=== PATIENT | male | born 1985 | race Two or more races ===

== ENCOUNTER 2016-08-22 05:39 | Emergency (ER) | payer OTHER ==
[~2016-08-22] VITALS: Ht 188 cm; Wt 69.9 kg
[2016-08-22 05:55] VITALS: BP 118/76
[2016-08-22] MEDS ORDERED: IPRATRPIUM/ALBUTEROL 0.5/2.5MG 3 ML NEBU. NEB ONE (06:15)
[2016-08-22] MEDS ORDERED: PREDNISONE 10 MG TABLET PO ONE (06:15)
[2016-08-22] MEDS ORDERED: PRED50TA PO (07:01)
--- NOTE | 2016-08-22 07:01 | PHYS DOC ---
Past Medical History Past Medical History: Other Additional Past Medical Histor: sinus infection Past Surgical History: Other Additional Past Surgical Histo: sinus infection w surg. intervention Alcohol Use: None Drug Use: None Adult General Chief Complaint Chief Complaint: SHORTNESS OF BREATH HPI HPI 31-year-old male presenting to the emergency department today with shortness of breath and cough. This is been present for 3 days. He recently was treated for sinus infection. He reports it being worse at night. It is associated with a nonproductive cough. He denies fevers. Location lungs. Duration intermittent. Mildly alleviated by albuterol. Review of Systems Review of Systems ROS negative for chest pain abdominal pain nausea vomiting fevers chills. All other review of systems is negative unless otherwise noted in history of present illness. Current Medications Current Medications Current Medications Medications (Trade) Dose Ordered Sig/Vangie Start Time Stop Time Status Last Admin Dose Admin Albuterol/ Ipratropium (Duoneb) 3 ml 1X ONCE 08/22/16 06:15 08/22/16 06:22 DC 08/22/16 06:21 3 ML Prednisone (Prednisone) 50 mg 1X ONCE 08/22/16 06:15 08/22/16 06:22 DC 08/22/16 06:26 50 MG Allergies Allergies Allergies Coded Allergies Type Severity Reaction Last Updated Verified No Known Drug Allergies 08/22/16 No Physical Exam Physical Exam Constitutional: Well developed, well nourished, no acute distress, non-toxic appearance. [] HENT: Normocephalic, atraumatic, bilateral external ears normal, oropharynx moist, no oral exudates, nose normal. [] Eyes: PERRLA, EOMI, conjunctiva normal, no discharge. [] Neck: Normal range of motion, no tenderness, supple, no stridor. [] Cardiovascular:Heart rate regular rhythm, no murmur [] Lungs & Thorax: Patient has wheezing on inspiration and expiration with a prolonged expiratory phase. No crackles present. Abdomen: Bowel sounds normal, soft, no tenderness, no masses, no pulsatile masses. [] Skin: Warm, dry, no erythema, no rash. [] Back: No tenderness, no CVA tenderness. [] Extremities: No tenderness, no cyanosis, no clubbing, ROM intact, no edema. [] Neurologic: Alert and oriented X 3, normal motor function, normal sensory function, no focal deficits noted. [] Psychologic: Affect normal, judgement normal, mood normal. [] Current Patient Data Vital Signs Vital Signs Date Time Temp Pulse Resp B/P Pulse Ox O2 Delivery O2 Flow Rate FiO2 08/22/16 06:21 93 Room Air 08/22/16 05:55 97.7 86 22 97.7 EKG EKG [] Radiology/Procedures Radiology/Procedures [] Course & Med Decision Making Course & Med Decision Making Pertinent Labs and Imaging studies reviewed. (See chart for details) [] 31-year-old male presenting the emergency department with cough and shortness of breath. On evaluation the patient's vital signs were afebrile. Oxygen saturation a little below what I would expect. Blood pressure within normal limits. Respiratory rate mildly increased. On examination the patient's wheezing present. He was treated with prednisone and a DuoNeb therapy rate on reevaluation his wheezing improved his oxygen saturation improved significantly. He was subsequent discharged home with oral prednisone for the next 5 days with an albuterol to go home with. Follow up with Dr. Cam over the next 3-5 days. Dragon Disclaimer Dragon Disclaimer This electronic medical record was generated, in whole or in part, using a voice recognition dictation system. Departure Departure Impression: Primary Impression: Acute asthma exacerbation Disposition: 01 HOME, SELF-CARE Condition: STABLE Referrals: NO PCP (PCP) MICKEY CAM MD Patient Instructions: Asthma Attacks, Prevention, Asthma, Adult Additional Instructions: Thank you for allowing us to participate in your care today. Followup with your primary care physician in 3 days if your symptoms do not improve. If you do not have a primary care provider you can ask for a list of our primary care providers. Return to the emergency department you have any new or concerning findings. This should be evaluated by the primary care physician and any necessary consulting services for continued management within a few days after discharge. Return to emergency room if you have any new or concerning symptoms including but not limited to fever, chills, nausea, vomiting, intractable pain, any new rashes, chest pain, shortness of air, uncontrolled bleeding, difficulty breathing, and/or vision loss. You may have been prescribed medication that can change in your level of thinking and ability to operate machinery. These medications include hydrocodone and Ativan. Also, Benadryl has been known to do this as well. Be sure to check with your pharmacist and ask if the medications you've prescribed can affect your level of consciousness. I recommend not operating heavy machinery or driving while on medication such as these. Scripts Albuterol Sulfate (Proair Hfa Inhaler)8.5 Gm Hfa.aer.ad1 Puff INH PRN Q6HRS PRN SHORTNESS OF BREATH #1 INHALER Prov:DC CASTILLO MD 08/22/16 Prednisone 50 Mg [id number] Mg PO DAILY #4 TAB start on 08/23/16 at 0700. Prov:DC CASTILLO MD 08/22/16 DC CASTILLO MD Aug 22, 2016 07:01
[2016-08-22] MEDS ORDERED: PROAIR HFA8.5 GM INH (07:02)
== END 2016-08-22 07:09 | disposition home or self-care (01) ==
LOC: ER 05:39
DX: J45.901 Unspecified asthma with (acute) exacerbation (principal)
CPT/HCPCS: 94640; 99283; J7512; J7620; 99284

== ENCOUNTER 2016-09-12 00:15 | Emergency (ER) | payer OTHER ==
[~2016-09-12] VITALS: Ht 188 cm; Wt 69.9 kg
[~2016-09-12 00:15] MED LIST: PRED50TA PO; PROAIR HFA8.5 GM INH
[2016-09-12 00:22] VITALS: BP 112/71
[2016-09-12] MEDS ORDERED: PRED50TA PO (00:37)
--- NOTE | 2016-09-12 00:37 | PHYS DOC ---
Past Medical History Past Medical History: Other Additional Past Medical Histor: sinus infection Past Surgical History: Other Additional Past Surgical Histo: sinus infection w surg. intervention Alcohol Use: None Drug Use: None Adult General Chief Complaint Chief Complaint: Congestion HPI HPI Patient is a 31 year old male who presents with nasal congestion and drainage that is worse at night. States history of asthma and sinus problems. Denies fever, sore throat. Review of Systems Review of Systems Constitutional: Denies fever or chills Eyes: Denies change in visual acuity, redness, or eye pain HENT: Denies sore throat. nasal congestion for several weeks Respiratory: Denies cough or shortness of breath Cardiovascular: No additional information not addressed in HPI GI: Denies abdominal pain, nausea, vomiting, bloody stools or diarrhea : Denies dysuria or hematuria Musculoskeletal: Denies back pain or joint pain Integument: Denies rash or skin lesions Neurologic: Denies headache, focal weakness or sensory changes Endocrine: Denies polyuria or polydipsia Allergies Allergies Allergies Coded Allergies Type Severity Reaction Last Updated Verified No Known Drug Allergies 08/22/16 No Physical Exam Physical Exam Constitutional: Well developed, well nourished, no acute distress, non-toxic appearance. HENT: Normocephalic, atraumatic, bilateral external ears normal, oropharynx moist, no oral exudates. Nares erythematous and clear nasal drainage Eyes: PERRLA, EOMI, conjunctiva normal, no discharge. Neck: Normal range of motion, no tenderness, supple, no stridor. Cardiovascular:Heart rate regular rhythm, no murmur Lungs & Thorax: Bilateral breath sounds clear to auscultation Abdomen: Bowel sounds normal, soft, no tenderness, no masses, no pulsatile masses. Skin: Warm, dry, no erythema, no rash. Back: No tenderness, no CVA tenderness. Extremities: No tenderness, no cyanosis, no clubbing, ROM intact, no edema. Neurologic: Alert and oriented X 3, normal motor function, normal sensory function, no focal deficits noted. Psychologic: Affect normal, judgement normal, mood normal. Current Patient Data Vital Signs Vital Signs Date Time Temp Pulse Resp B/P Pulse Ox O2 Delivery O2 Flow Rate FiO2 09/12/16 00:22 98.0 89 20 95 Room Air 98.0 EKG EKG [] Radiology/Procedures Radiology/Procedures [] Impressions: 1. congestion 2. asthma Course & Med Decision Making Course & Med Decision Making Pertinent Labs and Imaging studies reviewed. (See chart for details) [] Dragon Disclaimer Dragon Disclaimer This electronic medical record was generated, in whole or in part, using a voice recognition dictation system. Departure Departure Impression: Primary Impression: Nasal congestion Disposition: HOME, SELF-CARE Condition: STABLE Referrals: NO PCP (PCP) Patient Instructions: Allergic Rhinitis, Azelastine; Fluticasone nasal spray Additional Instructions: may get over the counter Flonase to assist with nasal drainage. Keep your appointment for 09/17/16. Return if any problems or concerns. Scripts Prednisone 50 Mg Tablet1 Tab PO DAILY #5 TAB Prov:AQUILES FISHER APRN 09/12/16 AQUILES FISHER APRN Sep 12, 2016 00:37
== END 2016-09-12 00:39 | disposition home or self-care (01) ==
LOC: ER 00:15
DX: R09.81 Nasal congestion (principal); J45.909 Unspecified asthma, uncomplicated
CPT/HCPCS: 99283

== ENCOUNTER → 2016-10-20 | Outpatient (CLI) | payer OTHER ==
--- NOTE | 2016-10-20 15:35 | RAD ---
Indication: Chronic sinus pain and headaches. Prior surgery a few months ago. Technique: Noncontrast CT head was obtained. CT maxillofacial includes axial images and coronal and sagittal reformatted images. No comparison for either exam is available. One or more of the following individualized dose reduction techniques were utilized for this examination: 1. Automated exposure control 2. Adjustment of the mA and/or kV according to patient size 3. Use of iterative reconstruction technique Findings: Head: The ventricles and sulci are within normal limits for age. There is no acute intracranial hemorrhage or extra-axial fluid collection. There is no mass effect or midline shift. Falk-white differentiation is preserved. Mastoid air cells are clear. There is no depressed skull fracture. Maxillofacial: Left frontal sinus is opacified. Moderate mucosal thickening is noted in the right frontal sinus. There likely has been ethmoid bullectomy on the right, mild right ethmoid mucosal thickening. Left ethmoid air cells are opacified, anterior and mid. It is difficult to determine if surgery was performed in the left ethmoid air cells. There is mild left sphenoid sinus mucosal thickening and moderate right. Right sphenoethmoidal recess is occluded and the left narrowed. There are postsurgical changes of widening of the maxillary ostium and resection of the uncinate process. There is mild to moderate maxillary mucosal thickening bilaterally with both maxillary ostia patent. Middle turbinates were probably partially resected and medialized. There is slight nasal septal deviation to the left. There is no wall sclerosis. There is no maxillofacial fracture. Orbital contents are unremarkable. Impression: 1. No acute intracranial findings. 2. Pansinus mucosal thickening. Postsurgical changes with widening of the maxillary ostia bilaterally and right ethmoid bullectomy.
== END | disposition home or self-care (01) ==
LOC: MERGE 14:30 → CT 14:55
PROVIDERS: ATTEND Family Medicine
DX: J32.4 Chronic pansinusitis (principal); R51 Headache; J30.9 Allergic rhinitis, unspecified
CPT/HCPCS: 70450; 70486

== ENCOUNTER 2016-10-24 00:21 | Emergency (ER) | payer OTHER ==
[~2016-10-24] VITALS: Ht 188 cm; Wt 74.4 kg
[2016-10-24 00:25] VITALS: BP 122/81
[2016-10-24] MEDS ORDERED: PRED-220 PO (02:01)
--- NOTE | 2016-10-24 02:01 | PHYS DOC ---
Past Medical History Past Medical History: Other Additional Past Medical Histor: sinus infection Past Surgical History: Other Additional Past Surgical Histo: sinus infection w surg. intervention Alcohol Use: None Drug Use: None Adult General Chief Complaint Chief Complaint: Congestion HPI HPI Patient is a 31 year old male who presents the emergency room today with ongoing nasal congestion, pressure and pain for approximately one and a half to 2 weeks. Patient's had a history of recurring problems of the sinuses. He has had sinus surgery [facility] within the past 2 years. Patient saw his primary care doctor, Dr. cedeno and had a subsequent CT scan performed. He states he has not had follow-up yet with Dr. cedeno. Patient has not made contact with his ENT doctor at [facility] as of yet. Denies any fevers or chills. Patient states that when he takes steroids is typically helped to eliezer the swelling. Review of Systems Review of Systems Constitutional: Denies fever or chills [] Eyes: Denies change in visual acuity, redness, or eye pain [] HENT: Denies nasal congestion or sore throat [] Respiratory: Denies cough or shortness of breath [] Cardiovascular: No additional information not addressed in HPI [] GI: Denies abdominal pain, nausea, vomiting, bloody stools or diarrhea [] : Denies dysuria or hematuria [] Musculoskeletal: Denies back pain or joint pain [] Integument: Denies rash or skin lesions [] Neurologic: Denies headache, focal weakness or sensory changes [] Endocrine: Denies polyuria or polydipsia [] Allergies Allergies Allergies Coded Allergies Type Severity Reaction Last Updated Verified No Known Drug Allergies 08/22/16 No Physical Exam Physical Exam Constitutional: Well developed, well nourished, no acute distress, non-toxic appearance. [] HENT: Normocephalic, atraumatic, bilateral external ears normal, oropharynx moist, no oral exudates. Patient has an obvious nasal breather. There is was lying/turbulent airflow when he inhales and x-ray ulcers nose. Patient's nasal mucosa is palpable and boggy. He has tenderness to both the frontal and maxillary sinuses as well as complaint of pain between his eyes. There is no mucopurulent drainage produced. Posterior oropharynx is normal in appearance. Eyes: PERRLA, EOMI, conjunctiva normal, no discharge. [] Neck: Normal range of motion, no tenderness, supple, no stridor. [] Cardiovascular:Heart rate regular rhythm, no murmur [] Lungs & Thorax: Bilateral breath sounds clear to auscultation. Abdomen: Bowel sounds normal, soft, no tenderness, no masses, no pulsatile masses. [] Skin: Warm, dry, no erythema, no rash. [] Back: No tenderness, no CVA tenderness. [] Extremities: No tenderness, no cyanosis, no clubbing, ROM intact, no edema. [] Neurologic: Alert and oriented X 3, normal motor function, normal sensory function, no focal deficits noted. [] Psychologic: Affect normal, judgement normal, mood normal. [] Current Patient Data Vital Signs Vital Signs Date Time Temp Pulse Resp B/P Pulse Ox O2 Delivery O2 Flow Rate FiO2 10/24/16 00:25 97.3 84 16 122/81 93 Room Air 97.3 EKG EKG [] Radiology/Procedures Radiology/Procedures Review patient's CT scan that was performed earlier this past week. There was widespread mucosal swelling and all of patient's sinuses without any fluid levels seen. There is also no documentation by the radiologist of only destruction. Course & Med Decision Making Course & Med Decision Making Pertinent Labs and Imaging studies reviewed. (See chart for details) [] Dragon Disclaimer Dragon Disclaimer This electronic medical record was generated, in whole or in part, using a voice recognition dictation system. Departure Departure Impression: Primary Impression: Pansinusitis Disposition: HOME, SELF-CARE Condition: GOOD Referrals: MIAN CEDENO MD (PCP) Patient Instructions: Sinusitis, [id number] Additional Instructions: 1. Take the medication as prescribed. 2. Review the discharge instructions for self-care and reasons to return to the emergency department. 3. Contact Dr. Cedeno's office for follow-up. You can also contact your ear nose and throat doctor at [facility] for follow-up as well. Scripts Prednisone 10 Mg [id number] Mg PO UD PREDNISONE TAPER #39 TAB Ref 0 Take 3 tablets by mouth twice a day for 3 days, then take 2 tablets by mouth twice a day for 3 days, then take 1 tablet by mouth twice a day for 3 days, then take 1 tablet by mouth daily x 3 days, then stop. Prov:AMANDA CARNES 10/24/16 AMANDA CARNES Oct 24, 2016 02:01
== END 2016-10-24 02:06 | disposition home or self-care (01) ==
LOC: ER 00:21
DX: J32.4 Chronic pansinusitis (principal)
CPT/HCPCS: 99283

== ENCOUNTER 2016-11-29 21:56 | Emergency (ER) | payer OTHER ==
[~2016-11-29] VITALS: Ht 188 cm; Wt 74.8 kg
[~2016-11-29 21:56] MED LIST changes: +PRED-220 PO
[2016-11-29] MEDS ORDERED: DEXAMETHASONE SOD PHOS 20 MG/5 ML VIAL. IM ONE (22:30)
[2016-11-29] MEDS ORDERED: IPRATRPIUM/ALBUTEROL 0.5/2.5MG 3 ML NEBU. NEB ONE (22:30)
[2016-11-29 23:35] VITALS: BP 119/78
--- NOTE | 2016-11-29 23:36 | PHYS DOC ---
Past Medical History Past Medical History: Other Additional Past Medical Histor: sinus infection Past Surgical History: Other Additional Past Surgical Histo: sinus infection w surg. intervention Alcohol Use: None Drug Use: None Adult General Chief Complaint Chief Complaint: COUGH HPI HPI Patient is a 31 year old male with history of chronic sinusitis who presents today complaining of chronic nasal congestion. Patient states he follows up with [facility], he states they did sinus surgery 2 years ago. He states he has continued to have sinus congestion and trouble breathing despite the surgery. He states he typically gets a steroids. He states when taking the steroids his symptoms are usually very mild. He states as soon as the steroids are completed his symptoms tend to recur, he states he took steroids last month. He states he called the primary care doctor at they ordered him azithromycin for 3 days ago. He states is still taking it. Patient is requesting steroid. Review of Systems Review of Systems Constitutional: Denies fever or chills [] Eyes: Denies change in visual acuity, redness, or eye pain [] HENT: Chronic nasal congestion. Respiratory: Denies cough or shortness of breath [] Cardiovascular: No additional information not addressed in HPI [] GI: Denies abdominal pain, nausea, vomiting, bloody stools or diarrhea [] : Denies dysuria or hematuria [] Musculoskeletal: Denies back pain or joint pain [] Integument: Denies rash or skin lesions [] Neurologic: Denies headache, focal weakness or sensory changes [] Endocrine: Denies polyuria or polydipsia [] Current Medications Current Medications Current Medications Medications (Trade) Dose Ordered Sig/Vangie Start Time Stop Time Status Last Admin Dose Admin Albuterol/ Ipratropium (Duoneb) 3 ml 1X ONCE 11/29/16 22:30 11/29/16 22:31 DC 11/29/16 22:45 3 ML Dexamethasone Sodium Phosphate (Decadron) 10 mg 1X ONCE 11/29/16 22:30 11/29/16 22:31 DC 11/29/16 22:39 10 MG Allergies Allergies Allergies Coded Allergies Type Severity Reaction Last Updated Verified No Known Drug Allergies 08/22/16 No Physical Exam Physical Exam Constitutional: Well developed, well nourished, no acute distress, non-toxic appearance. [] HENT: Normocephalic, atraumatic, bilateral external ears normal, oropharynx moist, no oral exudates, nose normal. [] Bilateral nasal turbinates are boggy and erythematous. Mild maxillary sinus tenderness on exam. Patient is a mouth breather due to chronic congestion. Eyes: PERRLA, EOMI, conjunctiva normal, no discharge. [] Neck: Normal range of motion, no tenderness, supple, no stridor. [] Cardiovascular:Heart rate regular rhythm, no murmur [] Lungs & Thorax: Bilateral breath sounds clear to auscultation [] Abdomen: Bowel sounds normal, soft, no tenderness, no masses, no pulsatile masses. [] Skin: Warm, dry, no erythema, no rash. [] Back: No tenderness, no CVA tenderness. [] Extremities: No tenderness, no cyanosis, no clubbing, ROM intact, no edema. [] Neurologic: Alert and oriented X 3, normal motor function, normal sensory function, no focal deficits noted. [] Psychologic: Affect normal, judgement normal, mood normal. [] Current Patient Data Vital Signs Vital Signs Date Time Temp Pulse Resp B/P Pulse Ox O2 Delivery O2 Flow Rate FiO2 11/29/16 22:43 92 Nasal Cannula 3.0 11/29/16 21:59 97.7 100 24 97.7 EKG EKG [] Radiology/Procedures Radiology/Procedures [] Course & Med Decision Making Course & Med Decision Making Pertinent Labs and Imaging studies reviewed. (See chart for details) Patient is in the ED with chronic sinus congestion. He typically gets steroids which alleviates his symptoms. He was given Decadron in the ED and discharged with Medrol Dosepak. He has an appointment with ENT at on December 11, 2016. He is currently on azithromycin which he received from his own PCP. His vitals are stable in the ED. 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 Dragon Disclaimer Dragon Disclaimer This electronic medical record was generated, in whole or in part, using a voice recognition dictation system. Departure Departure Impression: Primary Impression: Pansinusitis Disposition: HOME, SELF-CARE Condition: STABLE Referrals: MIAN BALES MD (PCP) Please call your primary care doctor as well as ENT and follow-up tomorrow Patient Instructions: Sinusitis Additional Instructions: You were seen for chronic sinus congestion. We highly recommend you call ENT and follow-up as soon as possible. Call your primary care doctor and schedule another follow-up appointment. Complete your azithromycin which you are currently on. We put you on steroids. Take as prescribed. Scripts Methylprednisolone (Medrol)4 Mg Tab.ds.pk1 Pkg PO UD #1 PKG Prov:ROD BRANNON APRN 11/29/16 Albuterol Sulfate (Proair Respiclick)90 Mcg Aer.pow.ba1 Puff IH PRN Q6HRS PRN SHORTNESS OF BREATH #1 INHALER Prov:ROD BRANNON APRN 11/29/16 Problem Qualifiers Primary Impression: Pansinusitis Chronicity: chronic Qualified Code: J32.4 - Chronic pansinusitis ROD BRANNON APRN Nov 29, 2016 23:36
[2016-11-29] MEDS ORDERED: METH4TAB2 PO (23:38)
[2016-11-29] MEDS ORDERED: PROAIR RESPICL90 MCG IH (23:38)
== END 2016-11-29 23:50 | disposition home or self-care (01) ==
LOC: ER 21:56
DX: J32.4 Chronic pansinusitis (principal); Z79.52 Long term (current) use of systemic steroids
CPT/HCPCS: 94640; 96372; 99283; J1100; J7620

== ENCOUNTER 2017-01-21 22:57 | Emergency (ER) | payer OTHER ==
[~2017-01-21] VITALS: Ht 188 cm; Wt 74.4 kg
[~2017-01-21 22:57] MED LIST changes: +METH4TAB2 PO; +PROAIR RESPICL90 MCG IH
[2017-01-21 23:08] VITALS: BP 153/77
--- NOTE | 2017-01-21 23:44 | PHYS DOC ---
Past Medical History Past Medical History: Other Additional Past Medical Histor: sinus infection Past Surgical History: Other Additional Past Surgical Histo: sinus infection w surg. intervention Alcohol Use: None Drug Use: None Adult General Chief Complaint Chief Complaint: COUGH HPI HPI Patient is a 31 year old male presents to the emergency department stating that he's been having shortness of air difficulty breathing within the last hour to 2 hours. He states that he did have some cough and congestion that started around midnight last night. Patient denies any fever, chills he does state that he's had some sinus infections in which he has been seeing ENT for the past. Patient denies any fever, any nausea or vomiting. Review of Systems Review of Systems Constitutional: Denies fever or chills [] Eyes: Denies change in visual acuity, redness, or eye pain [] HENT: Denies nasal congestion or sore throat [] Respiratory: cough and shortness of breath [] Cardiovascular: No additional information not addressed in HPI [] GI: Denies abdominal pain, nausea, vomiting, bloody stools or diarrhea [] : Denies dysuria or hematuria [] Musculoskeletal: Denies back pain or joint pain [] Integument: Denies rash or skin lesions [] Neurologic: Denies headache, focal weakness or sensory changes [] Endocrine: Denies polyuria or polydipsia [] Current Medications Current Medications Current Medications Medications (Trade) Dose Ordered Sig/Vangie Start Time Stop Time Status Last Admin Dose Admin Albuterol/ Ipratropium (Duoneb) 3 ml 1X ONCE 01/21/17 23:45 01/21/17 23:46 DC 01/21/17 23:48 3 ML Prednisone (Prednisone) 40 mg 1X ONCE 01/21/17 23:45 01/21/17 23:46 DC 01/21/17 23:45 40 MG Allergies Allergies Allergies Coded Allergies Type Severity Reaction Last Updated Verified No Known Drug Allergies 08/22/16 No Physical Exam Physical Exam Constitutional: Well developed, well nourished, no acute distress, non-toxic appearance. [] HENT: Normocephalic, atraumatic, bilateral external ears normal, oropharynx moist, no oral exudates, nose normal. [] Eyes: PERRLA, EOMI, conjunctiva normal, no discharge. [] Neck: Normal range of motion, no tenderness, supple, no stridor. [] Cardiovascular:Heart rate regular rhythm, no murmur [] Lungs & Thorax: Bilateral breath sounds wheezes noted throughout Skin: Warm, dry, no erythema, no rash. [] Back: No tenderness Extremities: No tenderness, no cyanosis, no clubbing, ROM intact, no edema. [] Neurologic: Alert and oriented X 3, normal motor function, normal sensory function, no focal deficits noted. [] Psychologic: Affect normal, judgement normal, mood normal. [] Current Patient Data Vital Signs Vital Signs Date Time Temp Pulse Resp B/P (MAP) Pulse Ox O2 Delivery O2 Flow Rate FiO2 01/21/17 23:49 98 Room Air 01/21/17 23:08 98.5 87 20 98.5 EKG EKG [] Radiology/Procedures Radiology/Procedures [] Course & Med Decision Making Course & Med Decision Making Pertinent Labs and Imaging studies reviewed. (See chart for details) Patient provided with respiratory treatment here in the emergency department. He 'll be provided with some steroids to help open up the airways. Plan is to discharge patient home with doxycycline for sinus infection as well as upper respiratory infection. She'll be encouraged to use an albuterol inhaler to help open up the airways. He'll be provided with steroids. She was reassessed after having a DuoNeb treatment. Breath sounds are clear throughout. Patient will be discharged with doxycycline, and prednisone. He'll also be provided with a prescription for albuterol inhaler. Signs and symptoms to return back to emergency department as been provided. Patient agrees with discharge instructions treatment regimens and follow-up recommendations. [] Dragon Disclaimer Dragon Disclaimer This electronic medical record was generated, in whole or in part, using a voice recognition dictation system. Departure Departure Impression: Primary Impression: Acute asthma exacerbation Disposition: HOME, SELF-CARE Condition: STABLE Referrals: MIAN BALES MD (PCP) Patient Instructions: Asthma, Adult, [id number] Additional Instructions: Activity as tolerated Medication as prescribed Tylenol or ibuprofen for pain and discomfort Drink plenty of fluids Followup with primary care provider in 3-5 days Return to emergency department as needed for signs and symptoms that become worse. Scripts Albuterol Sulfate (PROAIR HFA INHALER) 8.5 Gm Hfa.aer.ad 1 PUFF INH PRN Q6HRS Y for SHORTNESS OF BREATH, #1 INHALER 0 Refills Prov: DONAVAN VELASQUEZ APRN 01/22/17 Prednisone (PREDNISONE) 20 Mg Tablet 40 MG PO DAILY for 7 Days, #14 TAB Prov: DONAVAN VELASQUEZ APRN 01/22/17 Doxycycline Hyclate (DOXYCYCLINE HYCLATE) 100 Mg Capsule 1 CAP PO BID, #20 CAP Prov: DONAVAN VELASQUEZ APRN 01/22/17 DONAVAN VELASQUEZ APRN Jan 21, 2017 23:44
[2017-01-21] MEDS ORDERED: predniSONE 20 MG TABLET PO ONE (23:45)
[2017-01-21] MEDS ORDERED: IPRATRPIUM/ALBUTEROL 0.5/2.5MG 3 ML NEBU. NEB ONE (23:45)
[2017-01-22] MEDS ORDERED: PROAIR HFA8.5 GM INH (00:04)
[2017-01-22] MEDS ORDERED: DOXY100C2 PO (00:04)
[2017-01-22] MEDS ORDERED: PRED20TA PO (00:04)
== END 2017-01-22 00:06 | disposition home or self-care (01) ==
LOC: ER 22:57
DX: J45.901 Unspecified asthma with (acute) exacerbation (principal)
CPT/HCPCS: 94640; 99283; J7512; J7620

== ENCOUNTER 2017-02-25 21:08 | Emergency (ER) | payer OTHER ==
[~2017-02-25 21:08] MED LIST changes: +DOXY100C2 PO; +PRED20TA PO
--- NOTE | 2017-02-25 21:48 | PHYS DOC ---
Past Medical History Past Medical History: Other Additional Past Medical Histor: sinus infection Past Surgical History: Other Additional Past Surgical Histo: sinus infection w surg. intervention, HERNIA Alcohol Use: None Drug Use: None Adult General Chief Complaint Chief Complaint: Congestion HPI HPI Patient is a 31 year old male presents to the emergency department with a three -day history of shortness of breath and wheezing. He states that this same thing has occurred in the past he was on prednisone 3 weeks ago. He states while on the prednisone he had no difficulty. He also reports that he has been diagnosed with a chronic sinusitis that his physician told him he needed surgery for recovery. Patient states he is not scheduled the surgery because he is changing insurance. His report that he has albuterol at home which he uses at night when he wakes up and feels he can't breathe. He states it always relieves his symptoms. Review of Systems Review of Systems Constitutional: Denies fever or chills [] Eyes: Denies change in visual acuity, redness, or eye pain [] HENT: Denies nasal congestion or sore throat [] Respiratory: Shortness of breath and wheezing Cardiovascular: No additional information not addressed in HPI [] GI: Denies abdominal pain, nausea, vomiting, bloody stools or diarrhea [] : Denies dysuria or hematuria [] Musculoskeletal: Denies back pain or joint pain [] Integument: Denies rash or skin lesions [] Neurologic: Denies headache, focal weakness or sensory changes [] Endocrine: Denies polyuria or polydipsia [] Current Medications Current Medications Current Medications Medications (Trade) Dose Ordered Sig/Vangie Start Time Stop Time Status Last Admin Dose Admin Albuterol/ Ipratropium (Duoneb) 3 ml 1X ONCE 02/25/17 22:30 02/25/17 22:31 02/25/17 22:05 3 ML Methylprednisolone Sodium Succinate (SOLU-Medrol 125MG VIAL) 125 mg 1X ONCE 02/25/17 22:30 02/25/17 22:31 02/25/17 22:12 125 MG Allergies Allergies Allergies Coded Allergies Type Severity Reaction Last Updated Verified No Known Drug Allergies 08/22/16 No Physical Exam Physical Exam Constitutional: Well developed, well nourished, no acute distress, non-toxic appearance. [] HENT: Normocephalic, atraumatic, bilateral external ears normal, oropharynx moist, no oral exudates, nose normal, anterior turbinates normal Eyes: PERRLA, EOMI, conjunctiva normal, no discharge. [] Neck: Normal range of motion, no tenderness, supple, no stridor. [] Cardiovascular:Heart rate regular rhythm, no murmur [] Lungs & Thorax: Diminished with inspiratory ex per wheezing, no retractions. Skin: Warm, dry, no erythema, no rash. [] Extremities: No tenderness, no cyanosis, no clubbing, ROM intact, no edema. [] Neurologic: Alert and oriented X 3, normal motor function, normal sensory function, no focal deficits noted. [] Psychologic: Affect normal, judgement normal, mood normal. [] Current Patient Data Vital Signs Vital Signs Date Time Temp Pulse Resp B/P (MAP) Pulse Ox O2 Delivery O2 Flow Rate FiO2 02/25/17 22:06 95 Room Air 02/25/17 21:38 98.9 90 30 98.9 EKG EKG [] Radiology/Procedures Radiology/Procedures [] Course & Med Decision Making Course & Med Decision Making 2144: Patient has received Solu-Medrol 125 mg IV. Received a DuoNeb respiratory treatment which did relieve the wheezing. Patient reports that he feels significantly better and feels as if he can't catch his breath. Reevaluation he denies chest pain or shortness of breath. 2199: Evaluation, patient's oxygenation per saturation is 94%. Breath sounds with scattered rhonchi, scattered inspiratory wheeze. Plan to repeat DuoNeb, chest x-ray 2229: Patient has received 2 DuoNeb treatments, slightly Medrol 125 mg IV. His oxygen saturation is 98%. His respiratory rate is 16. This x-ray is within normal limits Patient reports that he feels comfortable, no shortness of breath , no wheezing. Pertinent Labs and Imaging studies reviewed. (See chart for details) [] Dragon Disclaimer Dragon Disclaimer This electronic medical record was generated, in whole or in part, using a voice recognition dictation system. Departure Departure Impression: Primary Impression: Acute asthma exacerbation Disposition: HOME, SELF-CARE Condition: STABLE Referrals: MIAN BALES MD (PCP) Patient Instructions: Asthma Attacks, Prevention, Asthma, Adult Scripts Albuterol Sulfate (PROAIR HFA INHALER) 8.5 Gm Hfa.aer.ad 2 PUFF INH PRN Q6HRS Y for SHORTNESS OF BREATH, #1 INHALER 0 Refills Prov: JULIUS BULL APRN 02/25/17 Montelukast Sodium (MONTELUKAST SODIUM TABLET) 10 Mg Tablet 1 TAB PO DAILY, #90 TAB 3 Refills Prov: JULIUS BULL APRN 02/25/17 Fluticasone/Salmeterol (ADVAIR 250-50 DISKUS) 1 Each Disk.w.dev 1 PUFF IH BID, #3 INHALER 3 Refills Prov: JULIUS BULL APRN 02/25/17 Methylprednisolone (MEDROL) 4 Mg Tab.ds.pk 1 PKG PO UD, #1 PKG Prov: JULIUS BULL APRN 02/25/17 Problem Qualifiers Primary Impression: Acute asthma exacerbation Asthma severity: mild intermittent Qualified Codes: J45.21 - Mild intermittent asthma with (acute) exacerbation JULIUS BULL APRN Feb 25, 2017 21:48
[2017-02-25] MEDS ORDERED: IPRATRPIUM/ALBUTEROL 0.5/2.5MG 3 ML NEBU. NEB ONE ×2 (22:00→22:30)
[2017-02-25] MEDS ORDERED: methylPREDNISolone SOD SUCC PF 125 MG/2 ML VIAL. IV ONE (22:30)
[2017-02-25] MEDS ORDERED: MONT10TA9 PO (22:35)
[2017-02-25] MEDS ORDERED: METH4TAB2 PO (22:35)
[2017-02-25] MEDS ORDERED: PROAIR HFA8.5 GM INH (22:35)
[2017-02-25] MEDS ORDERED: FLUT1DIS3 IH (22:35)
[2017-02-25 22:38] VITALS: BP 142/50
--- NOTE | 2017-02-26 07:55 | RAD ---
Indication shortness of breath. PA and lateral views of the chest were obtained. No prior imaging of the chest is available. The heart and pulmonary vessels appear normal. The lungs are clear. There is no pleural fluid or pneumothorax. IMPRESSION: Normal study
== END 2017-02-25 22:44 | disposition home or self-care (01) ==
LOC: ER 21:08
DX: J45.21 Mild intermittent asthma with (acute) exacerbation (principal); Z79.899 Other long term (current) drug therapy
CPT/HCPCS: 71020; 94250; 94640; 96374; 99284; C1887; J2930; J7620